=== PATIENT | male | born 1995 | race Caucasian/White ===

== ENCOUNTER 2021-06-04 20:20 | Emergency (ER) | payer MEDICAID, OTHER ==
[~2021-06-04] VITALS: Ht 165.1 cm; Wt 82.7 kg
[2021-06-04] MEDS ORDERED: ACETAMINOPHEN 325 MG TABLET PO ONE (22:15)
[2021-06-04] MEDS ORDERED: ONDANSETRON HCL 4 MG/2 ML VIAL IVP ONE (22:45)
[2021-06-04 22:52] LABS: COVID AG,FIA SOURCE NASOPHARYNGEAL
[2021-06-04 22:57] LABS: BASOPHILS % (AUTO) 0.4 % (0.0-2.0); EOSINOPHILS % (AUTO) 0.9 % (1.0-6.0); HEMATOCRIT 43.1 % (41-53); HEMOGLOBIN 14.9 g/dL (13.5-17.5); LYMPHOCYTES # (AUTO) 1.4 K/uL (1.0-4.8); LYMPHOCYTES % (AUTO) 16.1 % (22.0-44.0); MEAN CORPUSCULAR HEMOGLOBIN 29.9 pg (26.0-34.0); MEAN CORPUSCULAR HGB CONC 34.5 G/dL (31.0-37.0); MEAN CORPUSCULAR VOLUME 87 fL (80-100); MONOCYTES % (AUTO) 11.4 % (2.0-9.0); NEUTROPHILS % (AUTO) 71.2 % (40.0-70.0); PLATELET COUNT (AUTO) 161 K/uL (150-450); RED BLOOD CELL COUNT(AUTO) 4.98 MIL/uL (4.50-5.90); RED CELL DISTRIBUTION WIDTH 13.7 % (11.5-14.5)
[2021-06-04 23:00] LABS: ANION GAP 8 mmol/L (8-16); CALCIUM, TOTAL 9.2 mg/dL (8.8-10.5); CARBON DIOXIDE 29 mmol/L (22-29); CHLORIDE 99 mmol/L (98-107); CREATININE 1.12 mg/dL (0.60-1.30); GLOMERULAR FILTR. RATE CALC > 60 mL/min (>60); GLUCOSE,RANDOM 116 mg/dL (70-110); POTASSIUM 3.8 mmol/L (3.5-5.1); SODIUM SERUM 136 mmol/L (136-145); UREA NITROGEN, BLOOD 13 mg/dL (7-18)
[2021-06-04] MEDS ORDERED: SODIUM CHLORIDE 0.9% 500 ML IV ONE (23:00)
[2021-06-04 23:06] LABS: ALANINE AMINOTRANSFERASE 27 U/L (12-78); ALBUMIN 4.3 g/dL (3.4-5.0); ALKALINE PHOSPHATASE 98 U/L (46-116); ASPARTATE AMINOTRANSFERASE 24 U/L (15-37); BILIRUBIN,TOTAL 1.1 mg/dL (0.1-1.0); LIPASE 64 U/L (73-393); TOTAL PROTEIN, SERUM 8.7 g/dL (6.4-8.2)
[2021-06-04 23:17] LABS: INFLUENZA TYPE B NEGATIVE FOR TYPE B (NEGATIVE)
[2021-06-04 23:39] LABS: INFLUENZA TYPE A POSITIVE FOR TYPE A (NEGATIVE)
[2021-06-05] MEDS ORDERED: OSELTAMIVIR PHOSPHATE 75 MG CAPSULE PO ONE
[2021-06-05] MEDS ORDERED: OSEL75 PO (00:02)
[2021-06-05] MEDS ORDERED: ONDA-104 PO (00:02)
[2021-06-05 00:12] VITALS: BP 138/78
== END 2021-06-05 00:25 | disposition home or self-care (01) ==
LOC: EMS 20:24
DX: J10.1 Influenza due to other identified influenza virus with other respiratory manifestations (principal); Z20.822 Contact with and (suspected) exposure to COVID-19
CPT/HCPCS: 36415; 80053; 83690; 85025; 87426; 87804; 96361; 96374; 99283; C9803; J2405; J7040; U0003